=== PATIENT | male | born 1950 | race African-American/Black ===

== ENCOUNTER → 2023-09-14 | Day surgery (SDC) | payer MEDICARE ==
[~2023-09-14] MED LIST: ATORVASTATIN CA20 MG PO; GLUCAGON FOR INJ 1 MG VIAL ONE; LACTATED RINGER'S 1,000 ML ONE; LIDOCAINE HCL 2% LOCAL INJ 5 ML SDV VIAL INJ ONE; LISINOPRIL10 MG PO; MAGNESIUM OXID400 MG PO; PROBIOTIC & AC1 EACH PO; PROPOFOL IV EMULSION 10 MG/ML 20 ML VIAL ONE; SIMETHICONE 40 MG/0.6 ML BTL ONE; TRAVATAN Z5 ML OU
[2023-09-14 14:45] VITALS: BP 112/80; PULSE 87; RESP 14; O2SAT 97
== END | disposition home or self-care (01) ==
LOC: OR 11:41
PROVIDERS: ATTEND Internal Medicine Gastroenterology
DX: Z12.11 Encounter for screening for malignant neoplasm of colon (principal); D12.0 Benign neoplasm of cecum; D12.2 Benign neoplasm of ascending colon; D12.3 Benign neoplasm of transverse colon; D12.4 Benign neoplasm of descending colon; I10 Essential (primary) hypertension; K57.30 Diverticulosis of large intestine without perforation or abscess without bleeding; K64.8 Other hemorrhoids; E78.5 Hyperlipidemia, unspecified; I34.0 Nonrheumatic mitral (valve) insufficiency; I35.1 Nonrheumatic aortic (valve) insufficiency; Z79.899 Other long term (current) drug therapy
CPT/HCPCS: 45385; 88305; J1610; J2001; J2704; J7121; 45378